=== PATIENT | female | born 1960 | race Hispanic/Latino ===

== ENCOUNTER 2018-07-01 23:18 | Inpatient (IN) | payer SELFPAY ==
[2018-07-02 05:20] LABS: Bacteria,Urine 1+ /HPF (Negative); Bilirubin,Urine NEG (Negative); Blood,Urine MOD (Negative); Color,Urine Yellow (Yellow); Mucus,Urine FEW /HPF; Urobilinogen,Urine < 2.0 mg/dL (<2.0); WBC,Urine > 182.0 /HPF (0.0-6.0)
[2018-07-02 05:21] LABS: Mean Corpuscular HGB Conc 34 % (30-34); Mean Corpuscular Hemoglobin 31 pg (28-32); Mean Corpuscular Volume 91 fl (79-97); Platelet Count 352 K/mm3 (140-440); Red Blood Count 5.17 M/mm3 (3.65-5.03); Red Cell Distribution Width 12.6 % (13.2-15.2)
[2018-07-02 05:42] LABS: Alanine Aminotransferase 25 units/L (7-56); Albumin 4.6 g/dL (3.9-5); BUN/Creatinine Ratio 33; Blood Urea Nitrogen 23 mg/dL (7-17); Calcium 10.4 mg/dL (8.4-10.2); Hemolysis Index 9; Lipase 12 units/L (13-60)
[2018-07-02 06:28] LABS: Anisocytosis 1+; Basophils % (Manual) 0 % (0.0-1.8); Eosinophils % (Manual) 0 % (0.0-4.3); Platelet Estimate Consistent w Auto; Total Cells Counted 100
[2018-07-02] MEDS ORDERED: NACL 0.9% 1000 ML IV ONE (10:08)
[2018-07-02] MEDS ORDERED: ZOFRAN IV ONE (10:10)
--- NOTE | 2018-07-02 10:20 | Emergency Department Report ---
ED General Adult HPI - General Chief complaint: Nausea/Vomiting/Diarrhea Stated complaint: VOMITING,NAUSEA Time Seen by Provider: 07/02/18 09:58 Source: patient Mode of arrival: Ambulatory Limitations: No Limitations - History of Present Illness Initial comments: Patient is a 58-year-old female smoker history does have a family history of diabetes in her brother who is complaining of nausea vomiting for the past 2448 hrs. Patient states she also has some very mild diarrhea started as well. Patient denies any abdominal pain chest pain fevers or chills. Patient does feel very thirsty often but does not feel as though she is drinking excessive amount of water.She doesn't water all day. Patient does have some urinary frequency but no dysuria. Patient denies any fever or chills at this time. - Related Data Allergies Allergy/AdvReac Type Severity Reaction Status Date / Time No Known Allergies Allergy Unverified 07/02/18 03:23 ED Review of Systems ROS: Stated complaint: VOMITING,NAUSEA Other details as noted in HPI Comment: All other systems reviewed and negative ED Past Medical Hx - Past Medical History Previous Medical History?: No - Surgical History Past Surgical History?: No - Social History Smoking Status: Never Smoker Substance Use Type: None ED Physical Exam - General Limitations: No Limitations General appearance: alert, in no apparent distress - Head Head exam: Present: atraumatic, normocephalic - Eye Eye exam: Present: normal appearance - ENT ENT exam: Present: mucous membranes moist - Neck Neck exam: Present: normal inspection - Respiratory Respiratory exam: Present: normal lung sounds bilaterally. Absent: respiratory distress, wheezes, rales, rhonchi, stridor - Cardiovascular Cardiovascular Exam: Present: normal rhythm, tachycardia, normal heart sounds. Absent: systolic murmur, diastolic murmur, rubs, gallop - GI/Abdominal GI/Abdominal exam: Present: soft, normal bowel sounds. Absent: distended, tenderness, guarding, rebound, rigid - Extremities Exam Extremities exam: Present: normal inspection - Back Exam Back exam: Present: normal inspection - Neurological Exam Neurological exam: Present: alert, oriented X3 - Psychiatric Psychiatric exam: Present: normal affect, normal mood - Skin Skin exam: Present: warm, dry, intact, normal color. Absent: rash ED Course Vital Signs 07/01/18 07/02/18 07/02/18 23:24 03:20 10:03 Temperature 97.5 F L 97.5 F L 98.5 F Pulse Rate 99 H 105 H 116 H Respiratory 18 17 16 Rate Blood Pressure 133/90 133/90 Blood Pressure 125/93 [Left] O2 Sat by Pulse 99 99 96 Oximetry ED Medical Decision Making - Lab Data Result diagrams: 07/02/18 04:58 07/02/18 04:58 Lab Results 07/02/18 07/02/18 07/02/18 Range/Units 04:58 04:58 10:08 WBC 14.4 H (4.5-11.0) K/mm3 RBC 5.17 H (3.65-5.03) M/mm3 Hgb 16.0 H (10.1-14.3) gm/dl Hct 47.0 H (30.3-42.9) % MCV 91 (79-97) fl MCH 31 (28-32) pg MCHC 34 (30-34) % RDW 12.6 L (13.2-15.2) % Plt Count 352 (140-440) K/mm3 Add Manual Diff Complete Total Counted 100 Seg Neutrophils % Ironworker Foreman Seg Neuts % (Manual) 95.0 H (40.0-70.0) % Band Neutrophils % 0 % Lymphocytes % (Manual) 3.0 L (13.4-35.0) % Reactive Lymphs % (Man) 0 % Monocytes % (Manual) 2.0 (0.0-7.3) % Eosinophils % (Manual) 0 (0.0-4.3) % Basophils % (Manual) 0 (0.0-1.8) % Metamyelocytes % 0 % Myelocytes % 0 % Promyelocytes % 0 % Blast Cells % 0 % Nucleated RBC % Not Reportable Seg Neutrophils # Man 13.7 H (1.8-7.7) K/mm3 Band Neutrophils # 0.0 K/mm3 Lymphocytes # (Manual) 0.4 L (1.2-5.4) K/mm3 Abs React Lymphs (Man) 0.0 K/mm3 Monocytes # (Manual) 0.3 (0.0-0.8) K/mm3 Eosinophils # (Manual) 0.0 (0.0-0.4) K/mm3 Basophils # (Manual) 0.0 (0.0-0.1) K/mm3 Metamyelocytes # 0.0 K/mm3 Myelocytes # 0.0 K/mm3 Promyelocytes # 0.0 K/mm3 Blast Cells # 0.0 K/mm3 WBC Morphology Not Reportable Hypersegmented Neuts Not Reportable Hyposegmented Neuts Not Reportable Hypogranular Neuts Not Reportable Smudge Cells Not Reportable Toxic Granulation Not Reportable Toxic Vacuolation Not Reportable Dohle Bodies Not Reportable Pelger-Huet Anomaly Not Reportable Meri Rods Not Reportable Platelet Estimate Consistent w auto Clumped Platelets Not Reportable Plt Clumps, EDTA Not Reportable Large Platelets Not Reportable Giant Platelets Not Reportable Platelet Satelliting Not Reportable Plt Morphology Comment Not Reportable RBC Morphology Not Reportable Dimorphic RBCs Not Reportable Polychromasia Not Reportable Hypochromasia Not Reportable Poikilocytosis Not Reportable Anisocytosis 1+ Microcytosis Not Reportable Macrocytosis Not Reportable Spherocytes Not Reportable Pappenheimer Bodies Not Reportable Sickle Cells Not Reportable Target Cells Not Reportable Tear Drop Cells Not Reportable Ovalocytes Not Reportable Helmet Cells Not Reportable [place] Bodies Not Reportable [place] Rings Not Reportable Niesha Cells Not Reportable Bite Cells Not Reportable Crenated Cell Not Reportable Elliptocytes Not Reportable Acanthocytes (Spur) Not Reportable Rouleaux Not Reportable Hemoglobin C Crystals Not Reportable Schistocytes Not Reportable Malaria parasites Not Reportable Jimbo Bodies Not Reportable Hem Pathologist Commnt No Sodium 139 (137-145) mmol/L Potassium 4.4 (3.6-5.0) mmol/L Chloride 94.6 L (98-107) mmol/L Carbon Dioxide 19 L (22-30) mmol/L Anion Gap 30 mmol/L BUN 23 H (7-17) mg/dL Creatinine 0.7 (0.7-1.2) mg/dL Estimated GFR > 60 ml/min BUN/Creatinine Ratio 33 % Glucose 458 H (65-100) mg/dL POC Glucose 398 H (70-105) Calcium 10.4 H (8.4-10.2) mg/dL Total Bilirubin 2.20 H (0.1-1.2) mg/dL AST 17 (5-40) units/L ALT 25 (7-56) units/L Alkaline Phosphatase 100 (35-129) units/L Total Protein 8.2 (6.3-8.2) g/dL Albumin 4.6 (3.9-5) g/dL Albumin/Globulin Ratio 1.3 % Lipase 12 L (13-60) units/L Urine Color (Yellow) Urine Turbidity (Clear) Urine pH (5.0-7.0) Ur Specific [place] (1.003-1.030) Urine Protein (Negative) mg/dL Urine Glucose (UA) (Negative) mg/dL Urine Ketones (Negative) mg/dL Urine Blood (Negative) Urine Nitrite (Negative) Urine Bilirubin (Negative) Urine Urobilinogen (<2.0) mg/dL Ur Leukocyte Esterase (Negative) Urine WBC (Auto) (0.0-6.0) /HPF Urine RBC (Auto) (0.0-6.0) /HPF U Epithel Cells (Auto) (0-13.0) /HPF Urine Bacteria (Auto) (Negative) /HPF Urine WBC Clumps /HPF Urine Mucus /HPF 07/02/18 Range/Units Unknown WBC (4.5-11.0) K/mm3 RBC (3.65-5.03) M/mm3 Hgb (10.1-14.3) gm/dl Hct (30.3-42.9) % MCV (79-97) fl MCH (28-32) pg MCHC (30-34) % RDW (13.2-15.2) % Plt Count (140-440) K/mm3 Add Manual Diff Total Counted Seg Neutrophils % Seg Neuts % (Manual) (40.0-70.0) % Band Neutrophils % % Lymphocytes % (Manual) (13.4-35.0) % Reactive Lymphs % (Man) % Monocytes % (Manual) (0.0-7.3) % Eosinophils % (Manual) (0.0-4.3) % Basophils % (Manual) (0.0-1.8) % Metamyelocytes % % Myelocytes % % Promyelocytes % % Blast Cells % % Nucleated RBC % Seg Neutrophils # Man (1.8-7.7) K/mm3 Band Neutrophils # K/mm3 Lymphocytes # (Manual) (1.2-5.4) K/mm3 Abs React Lymphs (Man) K/mm3 Monocytes # (Manual) (0.0-0.8) K/mm3 Eosinophils # (Manual) (0.0-0.4) K/mm3 Basophils # (Manual) (0.0-0.1) K/mm3 Metamyelocytes # K/mm3 Myelocytes # K/mm3 Promyelocytes # K/mm3 Blast Cells # K/mm3 WBC Morphology Hypersegmented Neuts Hyposegmented Neuts Hypogranular Neuts Smudge Cells Toxic Granulation Toxic Vacuolation Dohle Bodies Pelger-Huet Anomaly Meri Rods Platelet Estimate Clumped Platelets Plt Clumps, EDTA Large Platelets Giant Platelets Platelet Satelliting Plt Morphology Comment RBC Morphology Dimorphic RBCs Polychromasia Hypochromasia Poikilocytosis Anisocytosis Microcytosis Macrocytosis Spherocytes Pappenheimer Bodies Sickle Cells Target Cells Tear Drop Cells Ovalocytes Helmet Cells [place] Bodies [place] Rings Niesha Cells Bite Cells Crenated Cell Elliptocytes Acanthocytes (Spur) Rouleaux Hemoglobin C Crystals Schistocytes Malaria parasites Jimbo Bodies Hem Pathologist Commnt Sodium (137-145) mmol/L Potassium (3.6-5.0) mmol/L Chloride (98-107) mmol/L Carbon Dioxide (22-30) mmol/L Anion Gap mmol/L BUN (7-17) mg/dL Creatinine (0.7-1.2) mg/dL Estimated GFR ml/min BUN/Creatinine Ratio % Glucose (65-100) mg/dL POC Glucose (70-105) Calcium (8.4-10.2) mg/dL Total Bilirubin (0.1-1.2) mg/dL AST (5-40) units/L ALT (7-56) units/L Alkaline Phosphatase (35-129) units/L Total Protein (6.3-8.2) g/dL Albumin (3.9-5) g/dL Albumin/Globulin Ratio % Lipase (13-60) units/L Urine Color Yellow (Yellow) Urine Turbidity Cloudy (Clear) Urine pH 6.0 (5.0-7.0) Ur Specific [place] 1.024 (1.003-1.030) Urine Protein 30 mg/dl (Negative) mg/dL Urine Glucose (UA) >=500 (Negative) mg/dL Urine Ketones 80 (Negative) mg/dL Urine Blood Mod (Negative) Urine Nitrite Neg (Negative) Urine Bilirubin Neg (Negative) Urine Urobilinogen < 2.0 (<2.0) mg/dL Ur Leukocyte Esterase Lg (Negative) Urine WBC (Auto) > 182.0 H (0.0-6.0) /HPF Urine RBC (Auto) 6.0 (0.0-6.0) /HPF U Epithel Cells (Auto) 1.0 (0-13.0) /HPF Urine Bacteria (Auto) 1+ (Negative) /HPF Urine WBC Clumps 2+ /HPF Urine Mucus Few /HPF - Medical Decision Making The patient does meet sepsis criteria for that it was seen that the patient's WBC count is over 12 patient is tachycardic. Patient placed on sepsis protocol by me. 30 mL per KG bolus has been ordered blood cultures have been ordered and the patient was started on Levaquin for UTI. Patient's is showing possible early signs of DKA as well. Patient has 80 ketones in her urine and her anion gap is 30. Patient's serum bicarbonate is just 19. Patient will be started on insulin drip and aggressively hydrated. Patient will be admitted to the hospitalist service under Dr. Becker at this time. Critical Care Time: Yes (30) Critical care attestation.: If time is entered above; I have spent that time in minutes in the direct care of this critically ill patient, excluding procedure time. ED Disposition Clinical Impression: Diabetes mellitus, new onset Sepsis Qualifiers: Sepsis type: sepsis due to unspecified organism Qualified Code(s): A41.9 - Sepsis, unspecified organism Acute cystitis Qualifiers: Hematuria presence: with hematuria Qualified Code(s): N30.01 - Acute cystitis with hematuria DKA (diabetic ketoacidoses) Qualifiers: Diabetes mellitus type: other specified (including JAISON) Diabetes mellitus complication detail: without coma Qualified Code(s): E13.10 - Other specified diabetes mellitus with ketoacidosis without coma Disposition: 09 OP ADMIT IP TO THIS HOSP Is pt being admited?: Yes Does the pt Need Aspirin: No Condition: Stable Instructions: Diabetes Mellitus Type 2 in Adults (ED), Diabetic Ketoacidosis ( ED) Referrals: PRIMARY CARE, [Primary Care Provider] - 3-5 Days Time of Disposition: 10:20
[2018-07-02] MEDS ORDERED: D50W (25GM) Syringe IV PRN ×2 (10:22→12:00)
[2018-07-02] MEDS ORDERED: HumuLIN R 100 UNITS in NACL 0.9% 99 ML IV SCH ×2 (11:00→12:00)
--- NOTE | 2018-07-02 11:07 | History and Physical Report ---
History of Present Illness Date of examination: 07/02/18 Date of admission: 07/02/18 Chief complaint: This is a 58-year-old female presents with chief complaint of nausea and vomiting. Patient denies any diarrhea or abdominal pain. Patient does report polydipsia and polyuria. Patient denies any history of diabetes mellitus. Patient states that she has not seen a physician in years and does not currently have a PCP. Patient denies dysuria or hematuria. No fever or chills. No cough or cold-like symptoms. Past History Past Medical History: No medical history Past Surgical History: No surgical history Social history: no significant social history Family history: no significant family history Medications and Allergies Allergies Allergy/AdvReac Type Severity Reaction Status Date / Time No Known Allergies Allergy Unverified 07/02/18 03:23 Home Medications Medication Instructions Recorded Confirmed Last Taken Type No Known Home Medications [No 07/02/18 07/02/18 Unknown History Reported Home Medications] Active Meds: Active Medications Dextrose (D50w (25gm) Syringe) 0 ml IV ONCE PRN PRN Reason: Hypoglycemia Levofloxacin/Dextrose (Levaquin 750mg/150ml) 750 mg in 150 mls @ 100 mls/hr IV Q24HR JOSSUE; Protocol Sodium Chloride (Nacl 0.9% 1000 Ml) 1,000 mls @ 200 mls/hr IV DIRECT JOSSUE Insulin Human Regular 100 (units/ Sodium Chloride) 100 mls @ 4 mls/hr IV TITR JOSSUE; Protocol Review of Systems All systems: negative Exam - Constitutional Vitals: Temp Pulse Resp BP Pulse Ox 98.5 F 116 H 16 125/93 96 07/02/18 10:03 07/02/18 10:03 07/02/18 10:03 07/02/18 10:03 07/02/18 10:03 General appearance: Present: no acute distress, well-nourished - EENT Eyes: Present: PERRL ENT: hearing intact, clear oral mucosa - Neck Neck: Present: supple, normal ROM - Respiratory Respiratory effort: normal Respiratory: bilateral: CTA - Cardiovascular Heart Sounds: Present: S1 & S2. Absent: rub, click - Extremities Extremities: pulses symmetrical, No edema Peripheral Pulses: within normal limits - Abdominal General gastrointestinal: Present: soft, non-tender, non-distended, normal bowel sounds Female genitourinary: Present: normal - Integumentary Integumentary: Present: clear, warm, dry - Musculoskeletal Musculoskeletal: gait normal, strength equal bilaterally - Psychiatric Psychiatric: appropriate mood/affect, intact judgment & insight - Neurologic Neurologic: CNII-XII intact, moves all extremities Results - Labs CBC & Chem 7: 07/02/18 04:58 07/02/18 04:58 Labs: Laboratory Last Values WBC 14.4 K/mm3 (4.5-11.0) H 07/02/18 04:58 RBC 5.17 M/mm3 (3.65-5.03) H 07/02/18 04:58 Hgb 16.0 gm/dl (10.1-14.3) H 07/02/18 04:58 Hct 47.0 % (30.3-42.9) H 07/02/18 04:58 MCV 91 fl (79-97) 07/02/18 04:58 MCH 31 pg (28-32) 07/02/18 04:58 MCHC 34 % (30-34) 07/02/18 04:58 RDW 12.6 % (13.2-15.2) L 07/02/18 04:58 Plt Count 352 K/mm3 (140-440) 07/02/18 04:58 Add Manual Diff Complete 07/02/18 04:58 Total Counted 100 07/02/18 04:58 Seg Neutrophils % Health Safety Coordinator 07/02/18 04:58 Seg Neuts % (Manual) 95.0 % (40.0-70.0) H 07/02/18 04:58 Band Neutrophils % 0 % 07/02/18 04:58 Lymphocytes % (Manual) 3.0 % (13.4-35.0) L 07/02/18 04:58 Reactive Lymphs % (Man) 0 % 07/02/18 04:58 Monocytes % (Manual) 2.0 % (0.0-7.3) 07/02/18 04:58 Eosinophils % (Manual) 0 % (0.0-4.3) 07/02/18 04:58 Basophils % (Manual) 0 % (0.0-1.8) 07/02/18 04:58 Metamyelocytes % 0 % 07/02/18 04:58 Myelocytes % 0 % 07/02/18 04:58 Promyelocytes % 0 % 07/02/18 04:58 Blast Cells % 0 % 07/02/18 04:58 Nucleated RBC % Not Reportable 07/02/18 04:58 Seg Neutrophils # Man 13.7 K/mm3 (1.8-7.7) H 07/02/18 04:58 Band Neutrophils # 0.0 K/mm3 07/02/18 04:58 Lymphocytes # (Manual) 0.4 K/mm3 (1.2-5.4) L 07/02/18 04:58 Abs React Lymphs (Man) 0.0 K/mm3 07/02/18 04:58 Monocytes # (Manual) 0.3 K/mm3 (0.0-0.8) 07/02/18 04:58 Eosinophils # (Manual) 0.0 K/mm3 (0.0-0.4) 07/02/18 04:58 Basophils # (Manual) 0.0 K/mm3 (0.0-0.1) 07/02/18 04:58 Metamyelocytes # 0.0 K/mm3 07/02/18 04:58 Myelocytes # 0.0 K/mm3 07/02/18 04:58 Promyelocytes # 0.0 K/mm3 07/02/18 04:58 Blast Cells # 0.0 K/mm3 07/02/18 04:58 WBC Morphology Not Reportable 07/02/18 04:58 Hypersegmented Neuts Not Reportable 07/02/18 04:58 Hyposegmented Neuts Not Reportable 07/02/18 04:58 Hypogranular Neuts Not Reportable 07/02/18 04:58 Smudge Cells Not Reportable 07/02/18 04:58 Toxic Granulation Not Reportable 07/02/18 04:58 Toxic Vacuolation Not Reportable 07/02/18 04:58 Dohle Bodies Not Reportable 07/02/18 04:58 Pelger-Huet Anomaly Not Reportable 07/02/18 04:58 Meri Rods Not Reportable 07/02/18 04:58 Platelet Estimate Consistent w auto 07/02/18 04:58 Clumped Platelets Not Reportable 07/02/18 04:58 Plt Clumps, EDTA Not Reportable 07/02/18 04:58 Large Platelets Not Reportable 07/02/18 04:58 Giant Platelets Not Reportable 07/02/18 04:58 Platelet Satelliting Not Reportable 07/02/18 04:58 Plt Morphology Comment Not Reportable 07/02/18 04:58 RBC Morphology Not Reportable 07/02/18 04:58 Dimorphic RBCs Not Reportable 07/02/18 04:58 Polychromasia Not Reportable 07/02/18 04:58 Hypochromasia Not Reportable 07/02/18 04:58 Poikilocytosis Not Reportable 07/02/18 04:58 Anisocytosis 1+ 07/02/18 04:58 Microcytosis Not Reportable 07/02/18 04:58 Macrocytosis Not Reportable 07/02/18 04:58 Spherocytes Not Reportable 07/02/18 04:58 Pappenheimer Bodies Not Reportable 07/02/18 04:58 Sickle Cells Not Reportable 07/02/18 04:58 Target Cells Not Reportable 07/02/18 04:58 Tear Drop Cells Not Reportable 07/02/18 04:58 Ovalocytes Not Reportable 07/02/18 04:58 Helmet Cells Not Reportable 07/02/18 04:58 [place] Bodies Not Reportable 07/02/18 04:58 [place] Rings Not Reportable 07/02/18 04:58 Niesha Cells Not Reportable 07/02/18 04:58 Bite Cells Not Reportable 07/02/18 04:58 Crenated Cell Not Reportable 07/02/18 04:58 Elliptocytes Not Reportable 07/02/18 04:58 Acanthocytes (Spur) Not Reportable 07/02/18 04:58 Rouleaux Not Reportable 07/02/18 04:58 Hemoglobin C Crystals Not Reportable 07/02/18 04:58 Schistocytes Not Reportable 07/02/18 04:58 Malaria parasites Not Reportable 07/02/18 04:58 Jimbo Bodies Not Reportable 07/02/18 04:58 Hem Pathologist Commnt No 07/02/18 04:58 Sodium 139 mmol/L (137-145) 07/02/18 04:58 Potassium 4.4 mmol/L (3.6-5.0) 07/02/18 04:58 Chloride 94.6 mmol/L (98-107) L 07/02/18 04:58 Carbon Dioxide 19 mmol/L (22-30) L 07/02/18 04:58 Anion Gap 30 mmol/L 07/02/18 04:58 BUN 23 mg/dL (7-17) H 07/02/18 04:58 Creatinine 0.7 mg/dL (0.7-1.2) 07/02/18 04:58 Estimated GFR > 60 ml/min 07/02/18 04:58 BUN/Creatinine Ratio 33 % 07/02/18 04:58 Glucose 458 mg/dL (65-100) H 07/02/18 04:58 POC Glucose 398 (70-105) H 07/02/18 10:08 Calcium 10.4 mg/dL (8.4-10.2) H 07/02/18 04:58 Total Bilirubin 2.20 mg/dL (0.1-1.2) H 07/02/18 04:58 AST 17 units/L (5-40) 07/02/18 04:58 ALT 25 units/L (7-56) 07/02/18 04:58 Alkaline Phosphatase 100 units/L (35-129) 07/02/18 04:58 Total Protein 8.2 g/dL (6.3-8.2) 07/02/18 04:58 Albumin 4.6 g/dL (3.9-5) 07/02/18 04:58 Albumin/Globulin Ratio 1.3 % 07/02/18 04:58 Lipase 12 units/L (13-60) L 07/02/18 04:58 Urine Color Yellow (Yellow) 07/02/18 Unknown Urine Turbidity Cloudy (Clear) 07/02/18 Unknown Urine pH 6.0 (5.0-7.0) 07/02/18 Unknown Ur Specific [place] 1.024 (1.003-1.030) 07/02/18 Unknown Urine Protein 30 mg/dl mg/dL (Negative) 07/02/18 Unknown Urine Glucose (UA) >=500 mg/dL (Negative) 07/02/18 Unknown Urine Ketones 80 mg/dL (Negative) 07/02/18 Unknown Urine Blood Mod (Negative) 07/02/18 Unknown Urine Nitrite Neg (Negative) 07/02/18 Unknown Urine Bilirubin Neg (Negative) 07/02/18 Unknown Urine Urobilinogen < 2.0 mg/dL (<2.0) 07/02/18 Unknown Ur Leukocyte Esterase Lg (Negative) 07/02/18 Unknown Urine WBC (Auto) > 182.0 /HPF (0.0-6.0) H 07/02/18 Unknown Urine RBC (Auto) 6.0 /HPF (0.0-6.0) 07/02/18 Unknown U Epithel Cells (Auto) 1.0 /HPF (0-13.0) 07/02/18 Unknown Urine Bacteria (Auto) 1+ /HPF (Negative) 07/02/18 Unknown Urine WBC Clumps 2+ /HPF 07/02/18 Unknown Urine Mucus Few /HPF 07/02/18 Unknown Assessment and Plan Assessment and plan: Sepsis. The patient meets criteria given the leukocytosis, tachycardia and diagnosis of UTI. Patient will be maintained on the sepsis pathway and treated with IV antibiotics and IV fluids. Follow blood and urine cultures. UTI. As above. New-onset diabetes mellitus mild DKA. The patient does have elevated blood glucose but CO2 is within normal range. Patient however does have an elevated anion gap. We will treat IV insulin drip for now and then transition to long- acting insulin Lantus and continue aggressive IV fluid hydration.
[2018-07-02] MEDS ORDERED: SODIUM CHLORIDE FLUSH SYRINGE 10 ML IV PRN (12:00)
[2018-07-02] MEDS ORDERED: ZOFRAN ONE (12:15)
[2018-07-02] MEDS ORDERED: NACL 0.9% 1000 ML 2,000 ML ONE (12:15)
[2018-07-02] MEDS ORDERED: LEVAQUIN 750MG/150ML 750 MG/150 ML BAG IV ONE (12:16)
[2018-07-02 12:26] LABS: BUN/Creatinine Ratio 40; Blood Urea Nitrogen 28 mg/dL (7-17); Calcium 10.4 mg/dL (8.4-10.2); Hemolysis Index 17
[2018-07-02] MEDS: LEVAQUIN 750MG/150ML 750 MG/150 ML BAG IV SCH (12:35)
[2018-07-02] MEDS: NACL 0.9% 1000 ML 1,000 ML IV SCH ×2 (13:37→18:16)
[2018-07-02] MEDS: SODIUM CHLORIDE FLUSH SYRINGE 10 ML IV SCH (13:40)
[2018-07-02] MEDS: LOVENOX SUB-Q SCH (13:44)
[2018-07-02 13:54] LABS: BUN/Creatinine Ratio 47; Blood Urea Nitrogen 28 mg/dL (7-17); Calcium 9.6 mg/dL (8.4-10.2); Hemolysis Index 89
[2018-07-02] MEDS: ZOFRAN IV PRN (14:42)
[2018-07-02 16:50] LABS: BUN/Creatinine Ratio 47; Blood Urea Nitrogen 28 mg/dL (7-17); Calcium 9.5 mg/dL (8.4-10.2); Hemolysis Index 18
[2018-07-02 19:50] LABS: BUN/Creatinine Ratio 39; Blood Urea Nitrogen 27 mg/dL (7-17); Calcium 9.4 mg/dL (8.4-10.2); Hemolysis Index 0
[2018-07-02 21:32] LABS: BUN/Creatinine Ratio 43; Blood Urea Nitrogen 26 mg/dL (7-17); Calcium 9.1 mg/dL (8.4-10.2); Hemolysis Index 0
[2018-07-02] MEDS ORDERED: D5W/0.45% NACL/KCL 20 MEQ 20 MEQ/1,000 ML BAG IV SCH ×2 (22:00→23:00)
[2018-07-03 02:52] LABS: BUN/Creatinine Ratio 42; Blood Urea Nitrogen 25 mg/dL (7-17); Calcium 9.3 mg/dL (8.4-10.2); Hemolysis Index 6
[2018-07-03 05:16] LABS: BUN/Creatinine Ratio 38; Blood Urea Nitrogen 23 mg/dL (7-17); Calcium 9.1 mg/dL (8.4-10.2); Hemolysis Index 3
[2018-07-03] MEDS: ZOFRAN IV PRN ×3 (05:24→22:32)
[2018-07-03] MEDS: SODIUM CHLORIDE FLUSH SYRINGE 10 ML IV SCH ×3 (05:24→13:03)
[2018-07-03 06:22] LABS: BUN/Creatinine Ratio 44; Blood Urea Nitrogen 22 mg/dL (7-17); Calcium 9.2 mg/dL (8.4-10.2); Hemolysis Index 9
[2018-07-03] MEDS ORDERED: D50W (25GM) Syringe IV PRN (08:27)
[2018-07-03] MEDS: HumuLIN R SUB-Q SCH ×4 (09:58→22:31)
[2018-07-03] MEDS: LOVENOX SUB-Q SCH (10:04)
[2018-07-03] MEDS: LEVAQUIN 750MG/150ML 750 MG/150 ML BAG IV SCH (10:05)
--- NOTE | 2018-07-03 10:28 | Progress Note ---
Assessment and Plan Assessment and plan: Sepsis. The patient meets criteria given the leukocytosis, tachycardia and diagnosis of UTI. Patient will be maintained on the sepsis pathway and treated with IV antibiotics and IV fluids. Follow blood and urine cultures. UTI. As above. New-onset diabetes mellitus with mild DKA. DKA has resolved. Patient will be transitioned to long-acting insulin. Consistent carbohydrate diet, sliding scale insulin and Accu-Cheks. Diabetic education. Disposition. Patient will be transferred to the floor. History Interval history: Patient still complains of nausea but no vomiting. Hospitalist Physical - Constitutional Vitals: Temp Pulse Resp BP Pulse Ox 97.4 F L 84 18 159/75 95 07/03/18 08:00 07/03/18 08:00 07/03/18 08:00 07/03/18 08:00 07/03/18 08:00 General appearance: Present: no acute distress, well-nourished - EENT Eyes: Present: PERRL, EOM intact ENT: hearing intact, clear oral mucosa, dentition normal - Neck Neck: Present: supple, normal ROM - Respiratory Respiratory effort: normal Respiratory: bilateral: CTA - Cardiovascular Rhythm: regular Heart Sounds: Present: S1 & S2. Absent: gallop, rub - Extremities Extremities: no ischemia, No edema, Full ROM - Abdominal General gastrointestinal: soft, non-tender, non-distended, normal bowel sounds - Integumentary Integumentary: Present: clear, warm, dry - Neurologic Neurologic: CNII-XII intact, moves all extremities Results - Labs CBC & Chem 7: 07/02/18 04:58 07/03/18 05:54 Labs: Laboratory Last Values WBC 14.4 K/mm3 (4.5-11.0) H 07/02/18 04:58 RBC 5.17 M/mm3 (3.65-5.03) H 07/02/18 04:58 Hgb 16.0 gm/dl (10.1-14.3) H 07/02/18 04:58 Hct 47.0 % (30.3-42.9) H 07/02/18 04:58 MCV 91 fl (79-97) 07/02/18 04:58 MCH 31 pg (28-32) 07/02/18 04:58 MCHC 34 % (30-34) 07/02/18 04:58 RDW 12.6 % (13.2-15.2) L 07/02/18 04:58 Plt Count 352 K/mm3 (140-440) 07/02/18 04:58 Add Manual Diff Complete 07/02/18 04:58 Total Counted 100 07/02/18 04:58 Seg Neutrophils % Hot Saw Operator 07/02/18 04:58 Seg Neuts % (Manual) 95.0 % (40.0-70.0) H 07/02/18 04:58 Band Neutrophils % 0 % 07/02/18 04:58 Lymphocytes % (Manual) 3.0 % (13.4-35.0) L 07/02/18 04:58 Reactive Lymphs % (Man) 0 % 07/02/18 04:58 Monocytes % (Manual) 2.0 % (0.0-7.3) 07/02/18 04:58 Eosinophils % (Manual) 0 % (0.0-4.3) 07/02/18 04:58 Basophils % (Manual) 0 % (0.0-1.8) 07/02/18 04:58 Metamyelocytes % 0 % 07/02/18 04:58 Myelocytes % 0 % 07/02/18 04:58 Promyelocytes % 0 % 07/02/18 04:58 Blast Cells % 0 % 07/02/18 04:58 Nucleated RBC % Not Reportable 07/02/18 04:58 Seg Neutrophils # Man 13.7 K/mm3 (1.8-7.7) H 07/02/18 04:58 Band Neutrophils # 0.0 K/mm3 07/02/18 04:58 Lymphocytes # (Manual) 0.4 K/mm3 (1.2-5.4) L 07/02/18 04:58 Abs React Lymphs (Man) 0.0 K/mm3 07/02/18 04:58 Monocytes # (Manual) 0.3 K/mm3 (0.0-0.8) 07/02/18 04:58 Eosinophils # (Manual) 0.0 K/mm3 (0.0-0.4) 07/02/18 04:58 Basophils # (Manual) 0.0 K/mm3 (0.0-0.1) 07/02/18 04:58 Metamyelocytes # 0.0 K/mm3 07/02/18 04:58 Myelocytes # 0.0 K/mm3 07/02/18 04:58 Promyelocytes # 0.0 K/mm3 07/02/18 04:58 Blast Cells # 0.0 K/mm3 07/02/18 04:58 WBC Morphology Not Reportable 07/02/18 04:58 Hypersegmented Neuts Not Reportable 07/02/18 04:58 Hyposegmented Neuts Not Reportable 07/02/18 04:58 Hypogranular Neuts Not Reportable 07/02/18 04:58 Smudge Cells Not Reportable 07/02/18 04:58 Toxic Granulation Not Reportable 07/02/18 04:58 Toxic Vacuolation Not Reportable 07/02/18 04:58 Dohle Bodies Not Reportable 07/02/18 04:58 Pelger-Huet Anomaly Not Reportable 07/02/18 04:58 Meri Rods Not Reportable 07/02/18 04:58 Platelet Estimate Consistent w auto 07/02/18 04:58 Clumped Platelets Not Reportable 07/02/18 04:58 Plt Clumps, EDTA Not Reportable 07/02/18 04:58 Large Platelets Not Reportable 07/02/18 04:58 Giant Platelets Not Reportable 07/02/18 04:58 Platelet Satelliting Not Reportable 07/02/18 04:58 Plt Morphology Comment Not Reportable 07/02/18 04:58 RBC Morphology Not Reportable 07/02/18 04:58 Dimorphic RBCs Not Reportable 07/02/18 04:58 Polychromasia Not Reportable 07/02/18 04:58 Hypochromasia Not Reportable 07/02/18 04:58 Poikilocytosis Not Reportable 07/02/18 04:58 Anisocytosis 1+ 07/02/18 04:58 Microcytosis Not Reportable 07/02/18 04:58 Macrocytosis Not Reportable 07/02/18 04:58 Spherocytes Not Reportable 07/02/18 04:58 Pappenheimer Bodies Not Reportable 07/02/18 04:58 Sickle Cells Not Reportable 07/02/18 04:58 Target Cells Not Reportable 07/02/18 04:58 Tear Drop Cells Not Reportable 07/02/18 04:58 Ovalocytes Not Reportable 07/02/18 04:58 Helmet Cells Not Reportable 07/02/18 04:58 [place] Bodies Not Reportable 07/02/18 04:58 [place] Rings Not Reportable 07/02/18 04:58 [place] Cells Not Reportable 07/02/18 04:58 Bite Cells Not Reportable 07/02/18 04:58 Crenated Cell Not Reportable 07/02/18 04:58 Elliptocytes Not Reportable 07/02/18 04:58 Acanthocytes (Spur) Not Reportable 07/02/18 04:58 Rouleaux Not Reportable 07/02/18 04:58 Hemoglobin C Crystals Not Reportable 07/02/18 04:58 Schistocytes Not Reportable 07/02/18 04:58 Malaria parasites Not Reportable 07/02/18 04:58 Jimbo Bodies Not Reportable 07/02/18 04:58 Hem Pathologist Commnt No 07/02/18 04:58 POC ABG pH 7.477 (7.35-7.45) H 07/02/18 14:37 POC ABG pCO2 28.7 (35-45) L 07/02/18 14:37 POC ABG pO2 82 (80-105) 07/02/18 14:37 POC ABG HCO3 21.3 07/02/18 14:37 POC ABG Total CO2 22 07/02/18 14:37 POC ABG O2 Sat 97 07/02/18 14:37 POC ABG Base Excess -2 07/02/18 14:37 FiO2 21 % 07/02/18 14:37 Sodium 144 mmol/L (137-145) 07/03/18 05:54 Potassium 3.5 mmol/L (3.6-5.0) L 07/03/18 05:54 Chloride 108.1 mmol/L (98-107) H 07/03/18 05:54 Carbon Dioxide 25 mmol/L (22-30) 07/03/18 05:54 Anion Gap 14 mmol/L 07/03/18 05:54 BUN 22 mg/dL (7-17) H 07/03/18 05:54 Creatinine 0.5 mg/dL (0.7-1.2) L 07/03/18 05:54 Estimated GFR > 60 ml/min 07/03/18 05:54 BUN/Creatinine Ratio 44 % 07/03/18 05:54 Glucose 163 mg/dL (65-100) H 07/03/18 05:54 POC Glucose 178 (70-105) H 07/03/18 09:02 Lactic Acid 1.70 mmol/L (0.7-2.0) 07/03/18 Unknown Calcium 9.2 mg/dL (8.4-10.2) 07/03/18 05:54 Phosphorus 5.50 mg/dL (2.5-4.5) H 07/02/18 11:02 Magnesium 2.20 mg/dL (1.7-2.3) 07/02/18 11:02 Total Bilirubin 2.20 mg/dL (0.1-1.2) H 07/02/18 04:58 AST 17 units/L (5-40) 07/02/18 04:58 ALT 25 units/L (7-56) 07/02/18 04:58 Alkaline Phosphatase 100 units/L (35-129) 07/02/18 04:58 Total Protein 8.2 g/dL (6.3-8.2) 07/02/18 04:58 Albumin 4.6 g/dL (3.9-5) 07/02/18 04:58 Albumin/Globulin Ratio 1.3 % 07/02/18 04:58 Lipase 12 units/L (13-60) L 07/02/18 04:58 Urine Color Yellow (Yellow) 07/02/18 Unknown Urine Turbidity Cloudy (Clear) 07/02/18 Unknown Urine pH 6.0 (5.0-7.0) 07/02/18 Unknown Ur Specific [place] 1.024 (1.003-1.030) 07/02/18 Unknown Urine Protein 30 mg/dl mg/dL (Negative) 07/02/18 Unknown Urine Glucose (UA) >=500 mg/dL (Negative) 07/02/18 Unknown Urine Ketones 80 mg/dL (Negative) 07/02/18 Unknown Urine Blood Mod (Negative) 07/02/18 Unknown Urine Nitrite Neg (Negative) 07/02/18 Unknown Urine Bilirubin Neg (Negative) 07/02/18 Unknown Urine Urobilinogen < 2.0 mg/dL (<2.0) 07/02/18 Unknown Ur Leukocyte Esterase Lg (Negative) 07/02/18 Unknown Urine WBC (Auto) > 182.0 /HPF (0.0-6.0) H 07/02/18 Unknown Urine RBC (Auto) 6.0 /HPF (0.0-6.0) 07/02/18 Unknown U Epithel Cells (Auto) 1.0 /HPF (0-13.0) 07/02/18 Unknown Urine Bacteria (Auto) 1+ /HPF (Negative) 07/02/18 Unknown Urine WBC Clumps 2+ /HPF 07/02/18 Unknown Urine Mucus Few /HPF 07/02/18 Unknown
[2018-07-03] MEDS: NACL 0.9% 1000 ML 1,000 ML IV SCH (13:04)
[2018-07-03] MEDS ORDERED: LANTUS SUB-Q SCH (22:00)
[2018-07-04] MEDS: ALUM-MAG HYDROX-SIMETH 200-200-20MG/5ML PO PRN ×2 (00:09→03:55)
[2018-07-04] MEDS: SODIUM CHLORIDE FLUSH SYRINGE 10 ML IV SCH ×3 (00:10→22:31)
[2018-07-04] MEDS: NACL 0.9% 1000 ML 1,000 ML IV SCH ×2 (00:12→17:36)
[2018-07-04] MEDS: ZOFRAN IV PRN ×2 (04:12→09:54)
[2018-07-04] MEDS: LOVENOX SUB-Q SCH (09:40)
[2018-07-04] MEDS: HumuLIN R SUB-Q SCH ×4 (09:41→22:39)
[2018-07-04] MEDS: LEVAQUIN 750MG/150ML 750 MG/150 ML BAG IV SCH (09:41)
--- NOTE | 2018-07-04 11:23 | Progress Note ---
Assessment and Plan Assessment and plan: Sepsis. The patient meets criteria given the leukocytosis, tachycardia and diagnosis of UTI. Patient will be maintained on the sepsis pathway and treated with IV antibiotics and IV fluids. Follow blood and urine cultures. UTI. As above. New-onset diabetes mellitus with mild DKA. DKA has resolved. Patient will be transitioned to long-acting insulin. Consistent carbohydrate diet, sliding scale insulin and Accu-Cheks. Diabetic education. Intractable nausea. Etiology likely secondary to GERD and UTI. GERD. Protonix 40mg daily Disposition. Patient will be transferred to the floor. History Interval history: Patient still complains of nausea but no vomiting. Hospitalist Physical - Constitutional Vitals: Temp Pulse Resp BP Pulse Ox 98.6 F 81 18 157/94 97 07/04/18 04:22 07/04/18 04:22 07/04/18 04:22 07/04/18 04:22 07/04/18 04:22 General appearance: Present: no acute distress, well-nourished - EENT Eyes: Present: PERRL, EOM intact ENT: hearing intact, clear oral mucosa, dentition normal - Neck Neck: Present: supple, normal ROM - Respiratory Respiratory effort: normal Respiratory: bilateral: CTA - Cardiovascular Rhythm: regular Heart Sounds: Present: S1 & S2. Absent: gallop, rub - Extremities Extremities: no ischemia, No edema, Full ROM - Abdominal General gastrointestinal: soft, non-tender, non-distended, normal bowel sounds - Integumentary Integumentary: Present: clear, warm, dry - Neurologic Neurologic: CNII-XII intact, moves all extremities Results - Labs CBC & Chem 7: 07/02/18 04:58 07/03/18 05:54 Labs: Laboratory Last Values WBC 14.4 K/mm3 (4.5-11.0) H 07/02/18 04:58 RBC 5.17 M/mm3 (3.65-5.03) H 07/02/18 04:58 Hgb 16.0 gm/dl (10.1-14.3) H 07/02/18 04:58 Hct 47.0 % (30.3-42.9) H 07/02/18 04:58 MCV 91 fl (79-97) 07/02/18 04:58 MCH 31 pg (28-32) 07/02/18 04:58 MCHC 34 % (30-34) 07/02/18 04:58 RDW 12.6 % (13.2-15.2) L 07/02/18 04:58 Plt Count 352 K/mm3 (140-440) 07/02/18 04:58 Add Manual Diff Complete 07/02/18 04:58 Total Counted 100 07/02/18 04:58 Seg Neutrophils % Engineering Writer 07/02/18 04:58 Seg Neuts % (Manual) 95.0 % (40.0-70.0) H 07/02/18 04:58 Band Neutrophils % 0 % 07/02/18 04:58 Lymphocytes % (Manual) 3.0 % (13.4-35.0) L 07/02/18 04:58 Reactive Lymphs % (Man) 0 % 07/02/18 04:58 Monocytes % (Manual) 2.0 % (0.0-7.3) 07/02/18 04:58 Eosinophils % (Manual) 0 % (0.0-4.3) 07/02/18 04:58 Basophils % (Manual) 0 % (0.0-1.8) 07/02/18 04:58 Metamyelocytes % 0 % 07/02/18 04:58 Myelocytes % 0 % 07/02/18 04:58 Promyelocytes % 0 % 07/02/18 04:58 Blast Cells % 0 % 07/02/18 04:58 Nucleated RBC % Not Reportable 07/02/18 04:58 Seg Neutrophils # Man 13.7 K/mm3 (1.8-7.7) H 07/02/18 04:58 Band Neutrophils # 0.0 K/mm3 07/02/18 04:58 Lymphocytes # (Manual) 0.4 K/mm3 (1.2-5.4) L 07/02/18 04:58 Abs React Lymphs (Man) 0.0 K/mm3 07/02/18 04:58 Monocytes # (Manual) 0.3 K/mm3 (0.0-0.8) 07/02/18 04:58 Eosinophils # (Manual) 0.0 K/mm3 (0.0-0.4) 07/02/18 04:58 Basophils # (Manual) 0.0 K/mm3 (0.0-0.1) 07/02/18 04:58 Metamyelocytes # 0.0 K/mm3 07/02/18 04:58 Myelocytes # 0.0 K/mm3 07/02/18 04:58 Promyelocytes # 0.0 K/mm3 07/02/18 04:58 Blast Cells # 0.0 K/mm3 07/02/18 04:58 WBC Morphology Not Reportable 07/02/18 04:58 Hypersegmented Neuts Not Reportable 07/02/18 04:58 Hyposegmented Neuts Not Reportable 07/02/18 04:58 Hypogranular Neuts Not Reportable 07/02/18 04:58 Smudge Cells Not Reportable 07/02/18 04:58 Toxic Granulation Not Reportable 07/02/18 04:58 Toxic Vacuolation Not Reportable 07/02/18 04:58 Dohle Bodies Not Reportable 07/02/18 04:58 Pelger-Huet Anomaly Not Reportable 07/02/18 04:58 Meri Rods Not Reportable 07/02/18 04:58 Platelet Estimate Consistent w auto 07/02/18 04:58 Clumped Platelets Not Reportable 07/02/18 04:58 Plt Clumps, EDTA Not Reportable 07/02/18 04:58 Large Platelets Not Reportable 07/02/18 04:58 Giant Platelets Not Reportable 07/02/18 04:58 Platelet Satelliting Not Reportable 07/02/18 04:58 Plt Morphology Comment Not Reportable 07/02/18 04:58 RBC Morphology Not Reportable 07/02/18 04:58 Dimorphic RBCs Not Reportable 07/02/18 04:58 Polychromasia Not Reportable 07/02/18 04:58 Hypochromasia Not Reportable 07/02/18 04:58 Poikilocytosis Not Reportable 07/02/18 04:58 Anisocytosis 1+ 07/02/18 04:58 Microcytosis Not Reportable 07/02/18 04:58 Macrocytosis Not Reportable 07/02/18 04:58 Spherocytes Not Reportable 07/02/18 04:58 Pappenheimer Bodies Not Reportable 07/02/18 04:58 Sickle Cells Not Reportable 07/02/18 04:58 Target Cells Not Reportable 07/02/18 04:58 Tear Drop Cells Not Reportable 07/02/18 04:58 Ovalocytes Not Reportable 07/02/18 04:58 Helmet Cells Not Reportable 07/02/18 04:58 [place] Bodies Not Reportable 07/02/18 04:58 [place] Rings Not Reportable 07/02/18 04:58 [place] Cells Not Reportable 07/02/18 04:58 Bite Cells Not Reportable 07/02/18 04:58 Crenated Cell Not Reportable 07/02/18 04:58 Elliptocytes Not Reportable 07/02/18 04:58 Acanthocytes (Spur) Not Reportable 07/02/18 04:58 Rouleaux Not Reportable 07/02/18 04:58 Hemoglobin C Crystals Not Reportable 07/02/18 04:58 Schistocytes Not Reportable 07/02/18 04:58 Malaria parasites Not Reportable 07/02/18 04:58 Jimbo Bodies Not Reportable 07/02/18 04:58 Hem Pathologist Commnt No 07/02/18 04:58 POC ABG pH 7.477 (7.35-7.45) H 07/02/18 14:37 POC ABG pCO2 28.7 (35-45) L 07/02/18 14:37 POC ABG pO2 82 (80-105) 07/02/18 14:37 POC ABG HCO3 21.3 07/02/18 14:37 POC ABG Total CO2 22 07/02/18 14:37 POC ABG O2 Sat 97 07/02/18 14:37 POC ABG Base Excess -2 07/02/18 14:37 FiO2 21 % 07/02/18 14:37 Sodium 144 mmol/L (137-145) 07/03/18 05:54 Potassium 3.5 mmol/L (3.6-5.0) L 07/03/18 05:54 Chloride 108.1 mmol/L (98-107) H 07/03/18 05:54 Carbon Dioxide 25 mmol/L (22-30) 07/03/18 05:54 Anion Gap 14 mmol/L 07/03/18 05:54 BUN 22 mg/dL (7-17) H 07/03/18 05:54 Creatinine 0.5 mg/dL (0.7-1.2) L 07/03/18 05:54 Estimated GFR > 60 ml/min 07/03/18 05:54 BUN/Creatinine Ratio 44 % 07/03/18 05:54 Glucose 163 mg/dL (65-100) H 07/03/18 05:54 POC Glucose 180 (70-105) H 07/04/18 08:17 Hemoglobin A1c 13.1 % (4-6) H 07/03/18 09:35 Lactic Acid 1.70 mmol/L (0.7-2.0) 07/03/18 Unknown Calcium 9.2 mg/dL (8.4-10.2) 07/03/18 05:54 Phosphorus 5.50 mg/dL (2.5-4.5) H 07/02/18 11:02 Magnesium 2.20 mg/dL (1.7-2.3) 07/02/18 11:02 Total Bilirubin 2.20 mg/dL (0.1-1.2) H 07/02/18 04:58 AST 17 units/L (5-40) 07/02/18 04:58 ALT 25 units/L (7-56) 07/02/18 04:58 Alkaline Phosphatase 100 units/L (35-129) 07/02/18 04:58 Total Protein 8.2 g/dL (6.3-8.2) 07/02/18 04:58 Albumin 4.6 g/dL (3.9-5) 07/02/18 04:58 Albumin/Globulin Ratio 1.3 % 07/02/18 04:58 Lipase 12 units/L (13-60) L 07/02/18 04:58 Urine Color Yellow (Yellow) 07/02/18 Unknown Urine Turbidity Cloudy (Clear) 07/02/18 Unknown Urine pH 6.0 (5.0-7.0) 07/02/18 Unknown Ur Specific [place] 1.024 (1.003-1.030) 07/02/18 Unknown Urine Protein 30 mg/dl mg/dL (Negative) 07/02/18 Unknown Urine Glucose (UA) >=500 mg/dL (Negative) 07/02/18 Unknown Urine Ketones 80 mg/dL (Negative) 07/02/18 Unknown Urine Blood Mod (Negative) 07/02/18 Unknown Urine Nitrite Neg (Negative) 07/02/18 Unknown Urine Bilirubin Neg (Negative) 07/02/18 Unknown Urine Urobilinogen < 2.0 mg/dL (<2.0) 07/02/18 Unknown Ur Leukocyte Esterase Lg (Negative) 07/02/18 Unknown Urine WBC (Auto) > 182.0 /HPF (0.0-6.0) H 07/02/18 Unknown Urine RBC (Auto) 6.0 /HPF (0.0-6.0) 07/02/18 Unknown U Epithel Cells (Auto) 1.0 /HPF (0-13.0) 07/02/18 Unknown Urine Bacteria (Auto) 1+ /HPF (Negative) 07/02/18 Unknown Urine WBC Clumps 2+ /HPF 07/02/18 Unknown Urine Mucus Few /HPF 07/02/18 Unknown
[2018-07-04] MEDS: GLUCOPHAGE PO SCH ×2 (12:35→17:35)
[2018-07-04] MEDS: REGLAN IV PRN ×2 (12:36→19:35)
[2018-07-04] MEDS ORDERED: LANTUS SUB-Q SCH (22:00)
[2018-07-05 06:07] VITALS: BP 131/87
[2018-07-05] MEDS: NACL 0.9% 1000 ML 1,000 ML IV SCH (06:23)
[2018-07-05] MEDS: HumuLIN R SUB-Q SCH ×2 (08:00→12:30)
--- NOTE | 2018-07-05 08:04 | Discharge Summary ---
Providers - Providers Date of Admission: 07/02/18 11:08 Date of discharge: 07/05/18 Attending physician: RENETTA ELY 07/03/18 11:21 Consult to Dietitian/Nutrition [CONS] Routine Physician Instructions: Reason For Exam: diabetes new onset Reason for Consult: Diet education Primary care physician: CULTURE MEDIA LABORATORY ASSISTANT Hospitalization Reason for admission: dka, uti Condition: Stable Hospital course: 58-year-old female with no significant past medical history presented to the emergency department with chief complaint of polydipsia, polyuria nausea and vomiting. Patient was admitted with diagnosis of new onset diabetes mellitus, DKA and UTI. Patient was treated with IV fluid hydration, IV antibiotics and IV insulin drip. The patient had significant improvement and DKA resolved. The patient was later transferred to the floor. Blood cultures were found to be negative. The patient was later transitioned to long-acting insulin and started on Glucophage. Patient will need to have further follow-up as an outpatient. Dedicated discharge time 32 minutes. Disposition: TO HOME OR SELFCARE Time spent for discharge: 32 - Discharge Diagnoses (1) Acute cystitis Status: Acute Qualifiers: Hematuria presence: with hematuria Qualified Code(s): N30.01 - Acute cystitis with hematuria (2) DKA (diabetic ketoacidoses) Status: Acute Qualifiers: Diabetes mellitus type: other specified (including JAISON) Diabetes mellitus complication detail: without coma Qualified Code(s): E13.10 - Other specified diabetes mellitus with ketoacidosis without coma (3) Diabetes mellitus, new onset Status: Acute (4) Sepsis Status: Acute Qualifiers: Sepsis type: sepsis due to unspecified organism Qualified Code(s): A41.9 - Sepsis, unspecified organism Core Measure Documentation - Palliative Care Palliative Care/ Comfort Measures: Not Applicable - Core Measures Any of the following diagnoses?: none Exam - Constitutional Vitals: Temp Pulse Resp BP Pulse Ox 98.8 F 85 18 131/87 94 07/05/18 04:20 07/05/18 04:20 07/05/18 04:20 07/05/18 04:20 07/05/18 04:20 General appearance: Present: no acute distress, well-nourished - EENT Eyes: Present: PERRL ENT: hearing intact, clear oral mucosa - Neck Neck: Present: supple, normal ROM - Respiratory Respiratory effort: normal Respiratory: bilateral: CTA - Cardiovascular Heart Sounds: Present: S1 & S2. Absent: rub, click - Extremities Extremities: pulses symmetrical, No edema Peripheral Pulses: within normal limits - Abdominal General gastrointestinal: Present: soft, non-tender, non-distended, normal bowel sounds Female genitourinary: Present: normal - Integumentary Integumentary: Present: clear, warm, dry - Musculoskeletal Musculoskeletal: gait normal, strength equal bilaterally - Psychiatric Psychiatric: appropriate mood/affect, intact judgment & insight - Neurologic Neurologic: CNII-XII intact, moves all extremities Plan Activity: no restrictions Weight Bearing Status: Full Weight Bearing Diet: diabetic Follow up with: PRIMARY CARE, [Primary Care Provider] - 3-5 Days ROZ HOWARD MD [Staff Physician] - 7 Days Prescriptions: Insulin Glargine [Lantus VIAL] 20 units SUB-Q QHS #30 units levoFLOXacin [Levaquin TAB] 500 mg PO QDAY #7 tablet metFORMIN [Glucophage] 500 mg PO BIDDIAB #60 tablet Metoclopramide [Reglan] 10 mg PO TID #30 tab Pantoprazole [Protonix TAB] 40 mg PO QDAY #30 tablet
[2018-07-05] MEDS: LOVENOX SUB-Q SCH (09:41)
[2018-07-05] MEDS: GLUCOPHAGE PO SCH (09:41)
[2018-07-05] MEDS: LEVAQUIN 750MG/150ML 750 MG/150 ML BAG IV SCH (09:41)
[2018-07-05] MEDS: REGLAN IV PRN (09:41)
[2018-07-05] MEDS: SODIUM CHLORIDE FLUSH SYRINGE 10 ML IV SCH (09:42)
[2018-07-05] MEDS ORDERED: PROTONIX PO SCH (10:00)
== END 2018-07-05 12:35 | disposition home or self-care (01) | DRG 871 ==
LOC: ED 23:18 → CC1 07-02 11:08 → 3A 07-03 11:17
PROVIDERS: ADMIT Hospitalist; ATTEND Hospitalist
DX: A41.9 Sepsis, unspecified organism (principal); E13.10 Other specified diabetes mellitus with ketoacidosis without coma; N30.00 Acute cystitis without hematuria; Z87.891 Personal history of nicotine dependence
CPT/HCPCS: 36415; 36600; 80048; 80053; 81001; 82140; 82803; 82962; 83036; 83690; 83735; 84100; 85007; 85025; 87040; 96374; 96375; J1650; J1815; J1956; J2405; J2765; J7030